=== PATIENT | male | born 1935 | race Caucasian/White ===

== ENCOUNTER 2019-01-08 10:19 | Emergency (ER) | payer OTHER, SELFPAY ==
[2019-01-08 10:43] VITALS: BP 157/73; PULSE 66; RESP 18; TEMP 36.7; O2SAT 96; BMI 26.6
--- NOTE | 2019-01-08 10:48 | ED.RECABL ---
HPI - Recheck/Abnormal Lab/Rx General Chief Complaint: Recheck/Abnormal Lab/Rx Stated Complaint: Dr. low called & told him to come to ER Time Seen by Provider: 01/08/19 10:32 Source: patient Mode of arrival: ambulatory Limitations: no limitations History of Present Illness HPI narrative: Patient is a 83-year-old male presenting with a recheck. Blood work was routinely drawn yesterday from his PCPs he was called this morning with results of potassium of 7.0 and elevated glucose of 500. He was instructed to come to the emergency department for immediate evaluation. Overall patient is feeling fine and has absolutely no complaints. He denies any weakness chest pain shortness of breath nausea vomiting or abdominal pain. he states that he used to be on insulin but now is just on pills. MD complaint: abnormal lab Related Data Home Medications Medication Instructions Recorded Confirmed ASPIRIN (#ASPIRIN) 81 mg PO Q DAY #0 03/27/11 11/12/18 Previous Rx's Medication Instructions Recorded Glucose: Home Monitoring Kit kit ACHS #1 08/28/[address] ACHS #120 08/28/16 Diabetic Shoes u PRN #1 10/30/16 [place] 5/16 Inch 0 item SQ SEE INSTRUCTIONS #100 07/25/17 [place] ea SQ BID #1 07/29/17 amlodipine 2.5 mg tablet 2.5 mg PO DAILY #90 tab 09/17/18 cholecalciferol (vitamin D3) 50,000 unit PO QWEEK #7 cap 09/17/18 50,000 unit capsule lisinopril 20 mg tablet 20 mg PO QDAYP #90 tab 09/19/18 glipizide 10 mg tablet 10 mg PO BID #180 tab 11/12/18 metformin 500 mg tablet 250 mg PO BID #90 tab 11/12/18 Allergies Allergy/AdvReac Type Severity Reaction Status Date / Time No Known Drug Allergies Allergy Verified 01/08/19 10:43 Review of Systems Review of Systems ROS Unobtainable: All systems reviewed & are unremarkable except as noted in HPI and below Constitutional Denies chills, Denies fever(s), Denies lethargy and Denies weakness Eyes Denies change in vision, Denies eye discharge, Denies irritation and Denies loss of vision Cardiovascular Denies chest pain, Denies irregular heart rhythm, Denies lightheadedness, Denies palpitations, Denies dyspnea, Denies dyspnea on exertion and Denies orthopnea Respiratory Denies cough, Denies dyspnea, Denies dyspnea on exertion and Denies wheezing Gastrointestinal Gastrointestinal: Denies abdominal pain, Denies change in bowel habits, Denies diarrhea, Denies nausea and Denies vomiting Genitourinary Denies hematuria, Denies flank pain, Denies urinary incontinence and Denies urinary urgency Musculoskeletal Denies back pain, Denies muscle weakness, Denies numbness and Denies tingling Neurologic Denies loss of vision, Denies numbness, Denies tingling and Denies weakness Endocrine Denies palpitations Allergic/Immunologic Denies wheezing [facility] Medical History Diabetes (Acute) Hypertension (Acute) Social History Smoking Status: Former smoker Social History Smoking Status: Former smoker Exam Initial Vital Signs Initial Vital Signs: Vital Signs Temperature 98.0 F 01/08/19 10:43 Pulse Rate 66 01/08/19 10:43 Respiratory Rate 18 01/08/19 10:43 Blood Pressure 157/73 H 01/08/19 10:43 Pulse Oximetry 96 01/08/19 10:43 GENERAL: Alert pleasant elderly no acute distress HEENT: Head atraumatic,EOMI, pupils reactive, face symmetric, moist mucous membranes CARDIOVASCULAR: Regular rate and rhythm without murmurs, rubs or gallops. RESPIRATORY: Breath sounds equal bilaterally, no wheezes rales or rhonchi. ABDOMEN: Soft, nontender. Normoactive bowel sounds all 4 quadrants. No guarding or rebound. EXTREMITIES: Normal range of motion, no clubbing or edema. Neurovascularly intact NEUROLOGICAL: Alert and oriented x4.Normal gait and speech. SKIN: Warm, dry, no laceration, no petechiae, no rashes or lesions. Course Orders Ordered: ED Orders 01/08/19 10:30 Complete Blood Count AUTO DIFF Stat Comprehensive Metabolic Panel Stat Discontinued Medications Sodium Chloride (Normal Saline 0.9%) 1,000 mls @ 1,000 mls/hr IV BOLUS ONE Stop: 01/08/19 12:12 Last Infusion: 01/08/19 14:03 Dose: 0 mls/hr Admin: 01/08/19 11:22 Dose: 1,000 mls/hr Vital Signs - 8 hr 01/08/19 10:43 01/08/19 11:02 01/08/19 11:30 Temperature 98.0 F Pulse Rate 66 60 59 L Respiratory Rate 18 16 17 Blood Pressure 157/73 H Blood Pressure [Right Arm] 148/70 H 148/76 H Pulse Oximetry 96 95 96 01/08/19 12:30 01/08/19 13:00 01/08/19 14:04 Temperature 98.2 F Pulse Rate 58 L 53 L 58 L Respiratory Rate 17 19 18 Blood Pressure 147/82 H Blood Pressure [Right Arm] 151/78 H 147/72 H Pulse Oximetry 99 98 98 MDM - Recheck/Abnormal Lab/Rx Lab Data Attestation: I reviewed the patient's lab results. Result diagrams: 01/08/19 10:30 01/08/19 10:30 Lab Results 01/08/19 01/08/19 Range/Units 10:30 10:30 WBC 6.2 (4.5-11.0) X10^3/uL RBC 4.11 L (4.5-5.9) X10^6/uL Hgb 11.6 L (13.5-17.5) g/dL Hct 36.4 L (41-53) % MCV 88.6 (80-100) fL MCH 28.2 (26-34) PG MCHC 31.9 (30-36) % RDW 15.5 H (11.6-14.8) % Plt Count 151 (150-400) X10^3/uL Neut % (Auto) 69.9 (50-75) % Lymph % (Auto) 21.6 L (25-40) % [place] % (Auto) 6.7 (3-14) % Eos % (Auto) 1.1 L (2-4) % Baso % (Auto) 0.7 (0-2) % Neut # (Auto) 4400 (5880-4974) /uL Lymph # (Auto) 1300 (7329-9238) /uL [place] # (Auto) 400 (0-900) /uL Eos # (Auto) 100 (0-450) /uL Baso # (Auto) 0 (0-100) /uL Sodium 133 L (137-145) mmol/L Potassium 5.3 H (3.4-5.1) mmol/L Chloride 98 (98-107) mmol/L Carbon Dioxide 24 (22-32) mmol/L BUN 30 H (9-20) mg/dL Creatinine 2.10 H (0.66-1.25) mg/dL Estimated GFR 30.5 L (>60) mL/min BUN/Creatinine Ratio 14.3 (6-22) Glucose 489 H* (80-110) mg/dL Calcium 8.3 L (8.4-10.2) mg/dL Total Bilirubin 0.5 (0.2-1.3) mg/dL AST 26 (17-59) IU/L ALT 25 (21-72) IU/L Alkaline Phosphatase 223 H (38-126) U/L Total Protein 7.6 (6.3-8.2) g/dL Albumin 3.8 (3.5-5.0) g/dL Globulin 3.8 (1.7-4.1) g/dL Albumin/Globulin Ratio 1.0 (1.0-2.8) Point of Care Testing Glucose POC 401 ECG Data Attestation: I personally reviewed and interpreted this ECG as follows: Prior ECG tracings: available for review Interpretation: Normal sinus rhythm rate [address] changes no peaked Ts WA interval 192 QRS 93 QTC 411 MDM Narrative Medical decision making narrative: Patient overall has no complaints feeling fine. Potassium level today is 5.3 glucose 489. No signs of DKA. Questionable if patient is compliant with medications. This is likely where he lives. He is given IV fluids glucose is rechecked at 401. Patient discharged Discharge Plan Departure Patient Disposition: Home Clinical Impression: Feared complaint without diagnosis Diabetes Qualifiers: Diabetes mellitus type: other specified (including TIFFANY) Diabetes mellitus long-term insulin use: without long-term use Diabetes mellitus complication status: without complication Qualified Code(s): E13.9 - Other specified diabetes mellitus without complications Discharge Date/Time: 01/08/19 14:08 Interventions: ED Discharge Assessment Last Done: 01/08/19 14:04 Instructions: DI for Diabetes Type 2 Activity Restrictions/Additional Instructions: *You have been diagnosed with elevated glucose but potassium has resolved, diabetes *What to do: It is very important that he take her diabetes medication as prescribed. Uncontrolled diabetes can lead to nerve problem, heart attacks, strokes, impotence, eye problem *Continue to take medications as directed *Follow up with your primary care provider in 2-3 days *Return to ER if you should have increasing weakness, chest pain, shortness of or any new, worsening or concerning symptoms Prescriptions: No Action ASPIRIN (#ASPIRIN) 81 mg PO Q DAY Qty: 0 RF: 0 Glucose: Home Monitoring Kit ACHS Qty: 1 RF: PRN [place] ACHS Qty: 120 RF: PRN Diabetic Shoes PRNQty: 1 RF: 0 [place] 5/16 Inch SQ SEE INSTRUCTIONS Qty: 100 RF: 11 [place] SQ BID Qty: 1 RF: 6 amlodipine 2.5 mg tablet 2.5 mg PO DAILY Qty: 90 RF: 3 cholecalciferol (vitamin D3) 50,000 unit capsule 50,000 unit PO QWEEK Qty: 7 RF: 0 lisinopril 20 mg tablet 20 mg PO QDAYP Qty: 90 RF: 3 glipizide 10 mg tablet 10 mg PO BID Qty: 180 RF: 3 metformin 500 mg tablet 250 mg PO BID Qty: 90 RF: 5 Referrals: Camilo Melgoza MD [Primary Care Provider] -
[2019-01-08 10:55] LABS: Add Manual Diff / Slide Review NO; Basophils Absolute Auto 0 /uL (0-100); Basophils Percent Auto 0.7 % (0-2); Eosinophils Absolute Auto 100 /uL (0-450); Eosinophils Percent Auto 1.1 % (2-4); Hematocrit 36.4 % (41-53); Hemoglobin 11.6 g/dL (13.5-17.5); Lymphocytes Absolute Auto 1300 /uL (1100-4500); Lymphocytes Percent Auto 21.6 % (25-40); Mean Corpuscular HGB Conc 31.9 % (30-36); Mean Corpuscular Hemoglobin 28.2 PG (26-34); Mean Corpuscular Volume 88.6 fL (80-100); Monocytes Absolute Auto 400 /uL (0-900); Monocytes Percent Auto 6.7 % (3-14); Neutrophils Absolute Auto 4400 /uL (1500-7000); Neutrophils Percent Auto 69.9 % (50-75); Platelet Count 151 X10^3/uL (150-400); Red Blood Cell Count 4.11 X10^6/uL (4.5-5.9); Red Cell Distribution Width 15.5 % (11.6-14.8); White Blood Cell Count 6.2 X10^3/uL (4.5-11.0)
--- NOTE | 2019-01-08 10:55 | ED_ITS ---
HPI - Recheck/Abnormal Lab/Rx General Chief Complaint: Recheck/Abnormal Lab/Rx Stated Complaint: Dr. low called & told him to come to ER Time Seen by Provider: 01/08/19 10:32 Source: patient Mode of arrival: ambulatory Limitations: no limitations History of Present Illness HPI narrative: Patient is a 83-year-old male presenting with a recheck. Blood work was routinely drawn yesterday from his PCPs he was called this morning with results of potassium of 7.0 and elevated glucose of 500. He was instructed to co me to the emergency department for immediate evaluation. Overall patient is feeling fine and has absolutely no complaints. He denies any weakness chest pain shortness of breath nausea vomiting or abdominal pain. he states that he used to be on insulin but now is just on pills. MD complaint: abnormal lab Related Data Home Medications Medication Instructions Recorded Confirmed ASPIRIN (#ASPIRIN) 81 mg PO Q DAY #0 03/27/11 11/12/18 Previous Rx's Medication Instructions Recorded Glucose: Home Monitoring Kit kit ACHS #1 08/28/[address] ACHS #120 08/28/16 Diabetic Shoes u PRN #1 10/30/16 [place] 5/16 Inch 0 item SQ SEE INSTRUCTIONS #100 07/25/17 [place] ea SQ BID #1 07/29/17 amlodipine 2.5 mg tablet 2.5 mg PO DAILY #90 tab 09/17/18 cholecalciferol (vitamin D3) 50,000 unit PO QWEEK #7 cap 09/17/18 50,000 unit capsule lisinopril 20 mg tablet 20 mg PO QDAYP #90 tab 09/19/18 glipizide 10 mg tablet 10 mg PO BID #180 tab 11/12/18 metformin 500 mg tablet 250 mg PO BID #90 tab 11/12/18 Allergies Allergy/AdvReac Type Severity Reaction Status Date / Time No Known Drug Allergies Allergy Verified 01/08/19 10:43 Review of Systems Review of Systems ROS Unobtainable: All systems reviewed & are unremarkable except as noted in HPI and below Constitutional Denies chills, Denies fever(s), Denies lethargy and Denies weakness Eyes Denies change in vision, Denies eye discharge, Denies irritation and Denies loss of vision Cardiovascular Denies chest pain, Denies irregular heart rhythm, Denies lightheadedness, Denies palpitations, Denies dyspnea, Denies dyspnea on exertion and Denies orthopnea Respiratory Denies cough, Denies dyspnea, Denies dyspnea on exertion and Denies wheezing Gastrointestinal Gastrointestinal: Denies abdominal pain, Denies change in bowel habits, Denies diarrhea, Denies nausea and Denies vomiting Genitourinary Denies hematuria, Denies flank pain, Denies urinary incontinence and Denies urinary urgency Musculoskeletal Denies back pain, Denies muscle weakness, Denies numbness and Denies tingling Neurologic Denies loss of vision, Denies numbness, Denies tingling and Denies weakness Endocrine Denies palpitations Allergic/Immunologic Denies wheezing [facility] Medical History Diabetes (Acute) Hypertension (Acute) Social History Smoking Status: Former smoker Social History Smoking Status: Former smoker Exam Initial Vital Signs Initial Vital Signs: Vital Signs Temperature 98.0 F 01/08/19 10:43 Pulse Rate 66 01/08/19 10:43 Respiratory Rate 18 01/08/19 10:43 Blood Pressure 157/73 H 01/08/19 10:43 Pulse Oximetry 96 01/08/19 10:43 GENERAL: Alert pleasant elderly no acute distress HEENT: Head atraumatic,EOMI, pupils reactive, face symmetric, moist mucous membranes CARDIOVASCULAR: Regular rate and rhythm without murmurs, rubs or gallops. RESPIRATORY: Breath sounds equal bilaterally, no wheezes rales or rhonchi. ABDOMEN: Soft, nontender. Normoactive bowel sounds all 4 quadrants. No guarding or rebound. EXTREMITIES: Normal range of motion, no clubbing or edema. Neurovascularly intact NEUROLOGICAL: Alert and oriented x4.Normal gait and speech. SKIN: Warm, dry, no laceration, no petechiae, no rashes or lesions. Course Orders Ordered: ED Orders 01/08/19 10:30 Complete Blood Count AUTO DIFF Stat Comprehensive Metabolic Panel Stat Discontinued Medications Sodium Chloride (Normal Saline 0.9%) 1,000 mls @ 1,000 mls/hr IV BOLUS ONE Stop: 01/08/19 12:12 Last Infusion: 01/08/19 14:03 Dose: 0 mls/hr Admin: 01/08/19 11:22 Dose: 1,000 mls/hr Vital Signs - 8 hr 01/08/19 10:43 01/08/19 11:02 01/08/19 11:30 Temperature 98.0 F Pulse Rate 66 60 59 L Respiratory Rate 18 16 17 Blood Pressure 157/73 H Blood Pressure [Right Arm] 148/70 H 148/76 H Pulse Oximetry 96 95 96 01/08/19 12:30 01/08/19 13:00 01/08/19 14:04 Temperature 98.2 F Pulse Rate 58 L 53 L 58 L Respiratory Rate 17 19 18 Blood Pressure 147/82 H Blood Pressure [Right Arm] 151/78 H 147/72 H Pulse Oximetry 99 98 98 MDM - Recheck/Abnormal Lab/Rx Lab Data Attestation: I reviewed the patient's lab results. Result diagrams: 01/08/19 10:30 01/08/19 10:30 Lab Results 01/08/19 01/08/19 Range/Units 10:30 10:30 WBC 6.2 (4.5-11.0) X10^3/uL RBC 4.11 L (4.5-5.9) X10^6/uL Hgb 11.6 L (13.5-17.5) g/dL Hct 36.4 L (41-53) % MCV 88.6 (80-100) fL MCH 28.2 (26-34) PG MCHC 31.9 (30-36) % RDW 15.5 H (11.6-14.8) % Plt Count 151 (150-400) X10^3/uL Neut % (Auto) 69.9 (50-75) % Lymph % (Auto) 21.6 L (25-40) % [place] % (Auto) 6.7 (3-14) % Eos % (Auto) 1.1 L (2-4) % Baso % (Auto) 0.7 (0-2) % Neut # (Auto) 4400 (8671-7716) /uL Lymph # (Auto) 1300 (7850-6681) /uL [place] # (Auto) 400 (0-900) /uL Eos # (Auto) 100 (0-450) /uL Baso # (Auto) 0 (0-100) /uL Sodium 133 L (137-145) mmol/L Potassium 5.3 H (3.4-5.1) mmol/L Chloride 98 (98-107) mmol/L Carbon Dioxide 24 (22-32) mmol/L BUN 30 H (9-20) mg/dL Creatinine 2.10 H (0.66-1.25) mg/dL Estimated GFR 30.5 L (>60) mL/min BUN/Creatinine Ratio 14.3 (6-22) Glucose 489 H* (80-110) mg/dL Calcium 8.3 L (8.4-10.2) mg/dL Total Bilirubin 0.5 (0.2-1.3) mg/dL AST 26 (17-59) IU/L ALT 25 (21-72) IU/L Alkaline Phosphatase 223 H (38-126) U/L Total Protein 7.6 (6.3-8.2) g/dL Albumin 3.8 (3.5-5.0) g/dL Globulin 3.8 (1.7-4.1) g/dL Albumin/Globulin Ratio 1.0 (1.0-2.8) Point of Care Testing Glucose POC 401 ECG Data Attestation: I personally reviewed and interpreted this ECG as follows: Prior ECG tracings: available for review Interpretation: Normal sinus rhythm rate [address] changes no peaked Ts AR interval 192 QRS 93 QTC 411 MDM Narrative Medical decision making narrative: Patient overall has no complaints feeling fine. Potassium level today is 5.3 glucose 489. No signs of DKA. Questionable if patient is compliant with medications. This is likely where he lives. He is given IV fluids glucose is rechecked at 401. 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 Uncontrolled diabetes can lead to nerve problem, heart attacks, strokes, impotence, eye problem *Continue to take medications as directed *Follow up with your primary care provider in 2-3 days *Return to ER if you should have increasing weakness, chest pain, shortness of or any new, worsening or concerning symptoms Prescriptions: No Action ASPIRIN (#ASPIRIN) 81 mg PO Q DAY Qty: 0 RF: 0 Glucose: Home Monitoring Kit ACHS Qty: 1 RF: PRN [place] ACHS Qty: 120 RF: PRN Diabetic Shoes PRNQty: 1 RF: 0 [place] 5/16 Inch SQ SEE INSTRUCTIONS Qty: 100 RF: 11 [place] SQ BID Qty: 1 RF: 6 amlodipine 2.5 mg tablet 2.5 mg PO DAILY Qty: 90 RF: 3 cholecalciferol (vitamin D3) 50,000 unit capsule 50,000 unit PO QWEEK Qty: 7 RF: 0 lisinopril 20 mg tablet 20 mg PO QDAYP Qty: 90 RF: 3 glipizide 10 mg tablet 10 mg PO BID Qty: 180 RF: 3 metformin 500 mg tablet 250 mg PO BID Qty: 90 RF: 5 Referrals: Camilo Melgoza MD [Primary Care Provider] -
[2019-01-08 11:02] VITALS: BP 148/70; PULSE 60; RESP 16; O2SAT 95
[2019-01-08 11:02] LABS: Alanine Aminotransferase 25 IU/L (21-72); Albumin 3.8 g/dL (3.5-5.0); Alkaline Phosphatase 223 U/L (38-126); Aspartate Aminotransferase 26 IU/L (17-59); BUN Creatinine Ratio 14.3 (6-22); Bilirubin Total 0.5 mg/dL (0.2-1.3); Blood Urea Nitrogen 30 mg/dL (9-20); Calcium 8.3 mg/dL (8.4-10.2); Carbon Dioxide 24 mmol/L (22-32); Chloride 98 mmol/L (98-107); Estimated Glomerular Filt Rate 30.5 mL/min (>60); Globulin 3.8 g/dL (1.7-4.1); HEMOLYSIS < 15 (0-50); Potassium 5.3 mmol/L (3.4-5.1); Sodium 133 mmol/L (137-145); Total Protein 7.6 g/dL (6.3-8.2)
[2019-01-08 11:16] LABS: Glucose 489 mg/dL (80-110)
[2019-01-08] MEDS: SODIUM CHLORIDE 0.9% 1,000 ML 1000 ML IV (11:22)
[2019-01-08 11:30] VITALS: BP 148/76; PULSE 59; RESP 17; O2SAT 96
[2019-01-08 12:30] VITALS: BP 151/78; PULSE 58; RESP 17; O2SAT 99
[2019-01-08 13:00] VITALS: BP 147/72; PULSE 53; RESP 19; O2SAT 98
--- NOTE | 2019-01-08 13:43 | PC.NURSE ---
Pt states he does not take any medication, this could explain why his Blood glucose is elevated. I notified Dr Angulo office, Nurse to Dr Melgoza is to follow up with patient to discuss medications and what meds to take.
[2019-01-08 14:04] VITALS: BP 147/82; PULSE 58; RESP 18; TEMP 36.8; O2SAT 98
== END 2019-01-08 14:08 | disposition home or self-care (01) ==
PROVIDERS: Emergency Provider Emergency Medicine; PCP Family Medicine
DX: E13.9 Other specified diabetes mellitus without complications (principal); Z71.1 Person with feared health complaint in whom no diagnosis is made; I10 Essential (primary) hypertension; E16.2 Hypoglycemia, unspecified; Z79.84 Long term (current) use of oral hypoglycemic drugs
CPT/HCPCS: 80053; 82962; 85025; 93005; 96360; 96361; 99283; 99284

== ENCOUNTER → 2019-07-02 15:29 | Outpatient (CLI) | payer OTHER, SELFPAY ==
[2019-07-02 15:59] LABS: Add Manual Diff / Slide Review NO; Basophils Absolute Auto 100 /uL (0-100); Eosinophils Absolute Auto 100 /uL (0-450); Eosinophils Percent Auto 1.4 % (2-4); Hemoglobin 13.9 g/dL (13.5-17.5); Lymphocytes Absolute Auto 1600 /uL (1100-4500); Lymphocytes Percent Auto 25.5 % (25-40); Mean Corpuscular HGB Conc 33.1 % (30-36); Mean Corpuscular Hemoglobin 31.5 PG (26-34); Mean Corpuscular Volume 95.1 fL (80-100); Monocytes Absolute Auto 500 /uL (0-900); Monocytes Percent Auto 7.8 % (3-14); Neutrophils Absolute Auto 4000 /uL (1500-7000); Neutrophils Percent Auto 64.3 % (50-75); Platelet Count 134 X10^3/uL (150-400); Red Blood Cell Count 4.41 X10^6/uL (4.5-5.9); Red Cell Distribution Width 17.1 % (11.6-14.8); White Blood Cell Count 6.3 X10^3/uL (4.5-11.0)
[2019-07-02 16:17] LABS: Hemoglobin A1C% w Est Avg Glu 10.3 % (4.0-6.0)
[2019-07-02 16:49] LABS: Alanine Aminotransferase 44 IU/L (21-72); Albumin 3.9 g/dL (3.5-5.0); Albumin Globulin Ratio 1.2 (1.0-2.8); Alkaline Phosphatase 200 U/L (38-126); Aspartate Aminotransferase 45 IU/L (17-59); BUN Creatinine Ratio 14.6 (6-22); Bilirubin Total 0.4 mg/dL (0.2-1.3); Blood Urea Nitrogen 41 mg/dL (9-20); Calcium 8.4 mg/dL (8.4-10.2); Carbon Dioxide 22 mmol/L (22-32); Chloride 103 mmol/L (98-107); Estimated Glomerular Filt Rate 21.9 mL/min (>60); Globulin 3.3 g/dL (1.7-4.1); HEMOLYSIS 23 (0-50); Sodium 136 mmol/L (137-145); Total Protein 7.2 g/dL (6.3-8.2)
[2019-07-02 17:03] LABS: Potassium 6.8 mmol/L (3.4-5.1)
[2019-07-02 17:04] LABS: Glucose 617 mg/dL (80-110)
== END ==
PROVIDERS: PCP Family Medicine; Visit Provider Family Medicine
DX: E11.9 Type 2 diabetes mellitus without complications (principal)
CPT/HCPCS: 36415; 80053; 83036; 85025